=== PATIENT | male | born 1940 | race Hispanic/Latino ===

== ENCOUNTER 2020-06-30 09:40 | Observation (INO) | payer MEDICARE, OTHER ==
[~2020-06-30] VITALS: Ht 167.6 cm; Wt 84.4 kg
[~2020-06-30 09:40] MED LIST: ASACOL HD800 MG PO; ASPIR 8181 MG PO; DIOVAN320 MG PO; IBUPROFEN200 MG PO; JANUVIA50 MG PO; PANTOPRAZOLE SO40 MG PO; PREDNISOLONE ACE5 ML; SIMVASTATIN40 MG PO; TOPROL XL50 MG PO; XALATAN2.5 ML OU; ZOFRAN4 MG PO
[2020-06-30] MEDS ORDERED: LACTATED RINGER'S 500 ML IV ONE ×2 (10:00→12:45)
[2020-06-30] MEDS ORDERED: SODIUM CHLORIDE 0.9% 500ML 500 ML ONE (10:05)
[2020-06-30 10:12] LABS: BASOPHILS # (AUTO) 0.1 (0.0-0.1); BASOPHILS % 0.3 % (0.0-1.0); EOSINOPHILS % 0.1 % (0.0-6.0); HEMATOCRIT 38.3 % (38.2-49.6); HEMOGLOBIN 12.6 g/dL (14.0-18.0); LYMPHOCYTES # (AUTO) 0.5 (1.0-3.2); LYMPHOCYTES % 2.8 % (18.0-39.1); MEAN CORPUSCULAR HEMOGLOBIN 29.2 pg (28-32); MEAN CORPUSCULAR HGB CONC 32.9 g/dL (31-35); MEAN CORPUSCULAR VOLUME 88.7 fL (81-99); MONOCYTES # (AUTO) 0.9 (0.2-0.8); MONOCYTES % 5.1 % (4.4-11.3); NEUTROPHILS # (AUTO) 15.5 (2.1-6.9); NEUTROPHILS % 90.9 % (38.7-80.0); PLATELET COUNT 201 x10e3/uL (140-360); RED BLOOD COUNT 4.32 x10e6/uL (4.3-5.7); RED CELL DISTRIBUTION WIDTH 12.7 % (11.7-14.4)
[2020-06-30] MEDS: LACTATED RINGER'S 500 ML INJ ONE (10:15)
[2020-06-30] MEDS ORDERED: ATORVASTATIN CA20 MG PO (10:27)
[2020-06-30] MEDS ORDERED: [UNRECOGNIZED DRUG - OTHER] PO (10:27)
[2020-06-30] MEDS ORDERED: COMBIGAN EYE DRO5 ML (10:27)
[2020-06-30] MEDS ORDERED: LOSARTAN POTAS100 MG PO (10:27)
[2020-06-30] MEDS ORDERED: GLIMEPIRIDE2 MG PO (10:27)
[2020-06-30] MEDS ORDERED: FENOFIBRATE145 MG PO (10:27)
[2020-06-30] MEDS ORDERED: LATISSE3 ML (10:27)
[2020-06-30] MEDS ORDERED: FLOMAX0.4 MG PO (10:28)
[2020-06-30 10:30] LABS: ALBUMIN 3.3 g/dL (3.5-5.0); ALBUMIN/GLOBULIN RATIO 1.3 (0.8-2.0); CALCIUM 8.4 mg/dL (8.4-10.2); CREATININE, SERUM 1.97 mg/dL (0.72-1.25)
--- NOTE | 2020-06-30 10:43 | Emergency Department Note ---
History of Present Illnes History of Present Illness Chief Complaint: General Medicine Complaints History of Present Illness This is a 79 year old male Chief Complaint Comment PATIENT IN FROM HOME WITH COMPLAINTS OF DIZZINESS AND NEAR SYNCOPE TODAY; PER EMS, FAMILY STATES THAT HE HAS HAD LOW BLOOD PRESSURE OVER THE LAST TWO WEEKS. PATIENT ALERT AND ORIENTED, RESP EVEN AND NONLABORED, APPEARS IN NO DISTRESS, POOR HISTORIAN. PATIENT WITH 20G TO RIGHT HAND STARTED BY EMS, GIVEN 150 CC OF NORMAL SALINE PRIOR TO ARRIVAL. 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 History limited by: language barrier Access Services Assistant Required: Yes Onset (how long ago): day(s) (1) Location: Generalized Quality: light headedness Radiation: Reports non-radiation Severity: moderate Onset quality: unable to specify Duration (how long): day(s) (1) Timing of current episode: other (Only when standing) Progression: unchanged Chronicity: new Context: Denies recent illness, Denies recent surgery Relieving factors: none Exacerbating factors: none Associated symptoms: Reports denies other symptoms Treatments prior to arrival: none Past Medical/Family History Physician Review I have reviewed the patient's past medical and family history. Any updates have been documented here. Past Medical History Recent Fever: No Clinical Suspicion of Infectio: No New/Unexplained Change in Ment: No Past Medical History: Hypertension, Diabetes, [place], GERD, Hyperlipedemia Other Medical History: HIGH CHOLESTEROL Past Surgical History: CABG, Cataract Removal Other Surgery: RIGHT EYE SURGERY Social History Physically hurt or threatened: No Other Last Tetanus: UNKNOWN Review of Systems Review of Systems Constitutional: Reports as per HPI EENTM: Reports no symptoms Cardiovascular: Reports no symptoms Respiratory: Reports no symptoms Gastrointestinal: Reports no symptoms Genitourinary: Reports no symptoms Musculoskeletal: Reports no symptoms Integumentary: Reports no symptoms Neurological: Reports no symptoms Psychological: Reports no symptoms Endocrine: Reports no symptoms Hematological/Lymphatic: Reports no symptoms Physical Exam Related Data Allergies: Coded Allergies: No Known Drug Allergies (Verified Allergy, Unknown, 06/30/20) Triage Vital Signs Vital Signs Date Time Temp Pulse Resp B/P (MAP) Pulse Ox O2 Delivery O2 Flow Rate FiO2 06/30/20 09:45 98.8 104 20 82/51 100 Room Air Vital signs reviewed: Yes Physical Exam CONSTITUTIONAL Constitutional: Present well-developed, Present well-nourished HENT HENT: Present normocephalic, Present atraumatic, Present oropharynx silva r/moist, Present nose normal HENT L/R: Present left ext ear normal, Present right ext ear normal EYES Eyes: Reports PERRL, Reports conjunctivae normal NECK Neck: Present ROM normal PULMONARY Pulmonary: Present effort normal, Present breath sounds normal CARDIOVASCULAR Cardiovascular: Present irregular rhythm, Present heart sounds normal, Present capillary refill normal, Present tachycardia GASTROINTESTINAL Abdominal: Present soft, Present nontender, Present bowel sounds normal GENITOURINARY Genitourinary: Present exam deferred SKIN Skin: Present warm, Present dry MUSCULOSKELETAL Musculoskeletal: Present ROM normal NEUROLOGICAL Neurological: Present alert, Present oriented x 3, Present no gross motor or sensory deficits PSYCHOLOGICAL Psychological: Present mood/affect normal, Present judgement normal Results Laboratory Result Diagram: 06/30/2055 06/30/20 0955 Laboratory Laboratory Tests Test 06/30/20 10:07 06/30/20 09:55 Lactic Acid Level 3.2 mmol/L (0.5-2.0) White Blood Count 17.01 x10e3/uL (4.8-10.8) Red Blood Count 4.32 x10e6/uL (4.3-5.7) Hemoglobin 12.6 g/dL (14.0-18.0) Hematocrit 38.3 % (38.2-49.6) Mean Corpuscular Volume 88.7 fL (81-99) Mean Corpuscular Hemoglobin 29.2 pg (28-32) Mean Corpuscular Hemoglobin Concent 32.9 g/dL (31-35) Red Cell Distribution Width 12.7 % (11.7-14.4) Platelet Count 201 x10e3/uL (140-360) Neutrophils (%) (Auto) 90.9 % (38.7-80.0) Lymphocytes (%) (Auto) 2.8 % (18.0-39.1) Monocytes (%) (Auto) 5.1 % (4.4-11.3) Eosinophils (%) (Auto) 0.1 % (0.0-6.0) Basophils (%) (Auto) 0.3 % (0.0-1.0) Neutrophils # (Auto) 15.5 (2.1-6.9) Lymphocytes # (Auto) 0.5 (1.0-3.2) Monocytes # (Auto) 0.9 (0.2-0.8) Eosinophils # (Auto) 0.0 (0.0-0.4) Basophils # (Auto) 0.1 (0.0-0.1) Absolute Immature Granulocyte (auto 0.14 x10e3/uL (0-0.1) Sodium Level 138 mmol/L (136-145) Potassium Level 4.0 mmol/L (3.5-5.1) Chloride Level 107 mmol/L (98-107) Carbon Dioxide Level 21 mmol/L (22-29) Anion Gap 14.0 mmol/L (8-16) Blood Urea Nitrogen 23 mg/dL (7-26) Creatinine 1.97 mg/dL (0.72-1.25) Estimat Glomerular Filtration Rate 33 ML/MIN (60-) BUN/Creatinine Ratio 12 (6-25) Glucose Level 271 mg/dL (74-118) Calcium Level 8.4 mg/dL (8.4-10.2) Total Bilirubin 0.5 mg/dL (0.2-1.2) Aspartate Amino Transf (AST/SGOT) 17 IU/L (5-34) Alanine Aminotransferase (ALT/SGPT) 14 IU/L (0-55) Alkaline Phosphatase 54 IU/L (40-150) Troponin I 0.017 ng/mL (0-0.300) Total Protein 5.9 g/dL (6.5-8.1) Albumin 3.3 g/dL (3.5-5.0) Globulin 2.6 g/dL (2.3-3.5) Albumin/Globulin Ratio 1.3 (0.8-2.0) Lab results reviewed: Yes Imaging Imaging results reviewed: Yes Diagnostics Tests Diagnostic test(s) reviewed: Yes Procedures 12 Lead ECG Interpretation ECG Interpretation : Access Services Assistant: Interpreted by ED physician Date: Jun 30, 2020 Prior ECG tracings: reviewed Rhythm: atrial fibrillation Rate: tachycardia QRS axis: normal Conduction: right bundle branch block ST segments normal: Yes T waves normal: Yes Clinical Impression: abnormal ECG Assessment & Plan Medical Decision Making MDM 79-year-old male with a past medical history significant for hypertension presents to the emergency department for lightheadedness when standing. He denies any pain or any focal symptoms. Initial examination shows hypotension 80/50. Patient's asymmetric while lying down. He is given 500 mL of lactated Ringer's with improvement in blood pressure. Bedside echocardiogram shows decreased cardiac contractility on to fluid overload. We'll be judicious with fluids and started on 126 mL per hour LR. Lactic acid 3 is started on Zosyn. No source of infection. Another 500cc LR given. Discussed with Dr. Jha who agrees to admit to IMCU Reassessment Reassessment time: 10:43 Reassessment Focused exam benign/ BP improved w/ fluids Assessment & Plan Final Impression: (1) Hypotension Depart Disposition: ADMITTED Last Vital Signs Date Time Temp Pulse Resp B/P (MAP) Pulse Ox O2 Delivery O2 Flow Rate FiO2 06/30/20 10:18 91 19 92/60 99 Room Air 06/30/20 09:45 98.8 Home Meds Reported Medications Tamsulosin Hcl* (FLOMAX*) 0.4 Mg Cap, 0.4 MG PO HS, #30 CAP 06/30/20 Losartan Potassium (LOSARTAN POTASSIUM) 100 Mg Tablet, 100 MG PO DAILY, TAB 06/30/20 [iron complex OR] No Conflict Check, 1 TAB PO DAILY 06/30/20 Glimepiride (GLIMEPIRIDE) 2 Mg Tablet, 1 MG PO DAILY, TAB 06/30/20 Fenofibrate Nanocrystallized (FENOFIBRATE) 145 Mg Tablet, 48 MG PO DAILY 06/30/20 Brimonidine Tartrate (COMBIGAN EYE DROPS) 5 Ml Drpette 06/30/20 Bimatoprost (LATISSE) 3 Ml Drop.w.oscar 06/30/20 Atorvastatin Calcium (ATORVASTATIN CALCIUM) 20 Mg Tablet, 80 MG PO HS, #30 TAB 06/30/20 Sitagliptin Phosphate (JANUVIA) 50 Mg Tablet, 50 MG PO RDAILY 03/30/13 Prednisolone Acetate (PREDNISOLONE ACETATE) 5 Ml Drops.susp, 1 DROP 03/30/13 Latanoprost (XALATAN) 2.5 Ml Drops, 1 DROP OU RDAILY 03/30/13 Discontinued Reported Medications Valsartan (DIOVAN) 320 Mg Tablet, 320 MG PO RDAILY 03/30/13 Simvastatin (SIMVASTATIN) 40 Mg Tablet, 40 MG PO RDAILY 03/30/13 Pantoprazole Sodium* (PROTONIX) 40 Mg Tablet.dr, 40 MG PO RDAILY 03/30/13 Ondansetron Hcl* (ZOFRAN*) 4 Mg Tablet, 4 MG PO RTID 03/30/13 Metoprolol Succinate (TOPROL XL) 50 Mg Tab.er.24h, 50 MG PO RDAILY 03/30/13 Mesalamine (ASACOL HD) 800 Mg Tablet.dr, 800 MG PO TID 03/30/13 Ibuprofen (IBUPROFEN) 200 Mg Capsule, 200 MG PE PO RQ6H 03/30/13 Aspirin (ASPIR 81) 81 Mg Tablet.dr, 81 MG PO RDAILY 03/30/13 Medications in the ED Lactated Ringer's 500 ml @ 0 mls/hr Q0M ONCE IV ; Start 06/30/20 at 10:00; Stop 06/30/20 at 10:02; Status DC Sodium Chloride 500 ml @ ud STK-MED ONCE .ROUTE ; Start 06/30/20 at 10:05; Stop 06/30/20 at 09:58; Status DC Lactated Ringer's 500 ml @ 0 mls/hr Q0M ONCE INJ ; Start 06/30/20 at 10:15; Stop 06/30/20 at 10:16; Status DC Piperacillin Sod/ Tazobactam Sod 100 ml @ 100 mls/hr NOW STAT IV ; Start 06/30/20 at 10:36; Stop 06/30/20 at 11:35 Lactated Ringer's 1,000 ml @ 126 mls/hr Q7H57M ONCE INJ ; Start 06/30/20 at 10:45; Stop 06/30/20 at 18:41 ALEXEY RUST MD Jun 30, 2020 10:43
[2020-06-30 11:02] LABS: BAND NEUTROPHILS % (MANUAL) 1 %; LYMPHOCYTES % (MANUAL) 2 % (19-48); MONOCYTES % (MANUAL) 3 % (3.4-9.0); NEUTROPHILS % (MANUAL) 93 % (40-74); PLATELET ESTIMATE ADEQUATE; PLATELET MORPHOLOGY COMMENT NORMAL; RBC MORPHOLOGY COMMENT NORMAL
--- NOTE | 2020-06-30 11:11 | Diagnostic Imaging Report ---
EXAMINATION: CHEST SINGLE (PORTABLE) INDICATION: Chest pain COMPARISON: None FINDINGS: LINES/TUBES:EKG leads overlie the chest. LUNGS:The lungs are well-inflated. No focal consolidation or pulmonary edema. PLEURA:No pleural effusion or pneumothorax. MEDIASTINUM:The cardiomediastinal silhouette appears normal in size and shape. BONES/SOFT TISSUES:No acute osseous injury. Sternotomy wires in place. ABDOMEN:No free air under the diaphragm. IMPRESSION: No focal pneumonia or pulmonary edema. Signed by: Ronny Graves MD on 06/30/2020 11:07 AM
[2020-06-30] MEDS: PIPERACILLIN/TAZO 4.5 GM 100 ML IV STA ×2 (11:23→11:31)
[2020-06-30] MEDS: LACTATED RINGER'S 1,000 ML INJ ONE ×2 (11:23→11:30)
[2020-06-30] MEDS ORDERED: LACTATED RINGER'S 1,000 ML ONE (12:44)
[2020-06-30] MEDS ORDERED: LACTATED RINGER'S 500 ML INJ ONE (12:45)
--- OUTSIDE RECORDS SUMMARY | 2020-06-30 12:46 | XMS REPORT | Continuity of Care Document ---
Author Author [facility] Organization 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 Allergies, Adverse Reactions, Alerts This patient has no known allergies or adverse reactions. Medications This patient has no known medications. Procedures This patient has no known procedures. Results Test Description Test Time Test Comments Results Result Comments Source CHEST SINGLE (PORTABLE) 2020-06-30 11:07:00 [facility] 1940 Sex: M [facility] [address] [address] Patient Name: JOHN SOLOMON MR #: [id number] : 1940 Age/Sex: 79/M Req #: [id number] [facility] Physician: Ordered by: Collin Polanco MD Report #: [id number] Location: ER Room/Bed: Procedure: [id number] DX/CHEST SINGLE (PORTABLE) Exam Date: Exam Time: REPORT STATUS: Signed EXAMINATION: CHEST SINGLE (PORTABLE) INDICATION: Chest pain COMPARISON: None FINDINGS: LINES/TUBES:EKG leads overlie the chest. LUNGS:The lungs are well-inflated. No focal consolidation or pulmonary edema. PLEURA:No pleural effusion or pneumothorax. MEDIASTINUM:The cardiomediastinal silhouette appears normal in size and shape. BONES/SOFT TISSUES:No acute osseous injury. Sternotomy wires in place. ABDOMEN:No free air under the diaphragm. IMPRESSION: No focal pneumonia or pulmonary edema. Signed by: Herve Montgomery MD on 06/30/2020 11:07 AM Dictated By: HERVE MONTGOMERY MD 06 Transcribed By: MATTEO on 06/30/201106 COPY TO: COLLIN POLANCO MD
[2020-06-30 12:59] LABS: CLARITY,URINE SL CLOUDY (CLEAR); COLOR,URINE YELLOW (YELLOW); LEUKOCYTE ESTERASE ,URINE SMALL (NEGATIVE)
[2020-06-30 13:00] LABS: KETONES,URINE TRACE (NEGATIVE); NITRITE,URINE NEGATIVE (NEGATIVE); PROTEIN,URINE DIPSTICK 1+ (NEGATIVE); URINE UROBILINOGEN 0.2 mg/dL (0.2 - 1)
[2020-06-30 13:01] LABS: BILIRUBIN,URINE SMALL (NEGATIVE)
[2020-06-30 13:07] LABS: BACTERIA,URINE FEW /HPF
[2020-06-30] MEDS ORDERED: ONDANSETRON HCL INJ 2MG/ML 2ML 2 MG/ML VIAL IV PRN (13:15)
[2020-06-30] MEDS ORDERED: ALBUTEROL/IPRATROPIUM 3 ML NEB NEB PRN (13:15)
[2020-06-30] MEDS ORDERED: ACETAMINOPHEN 325 MG TAB PO PRN (13:15)
[2020-06-30] MEDS ORDERED: POTASSIUM CHLORIDE 20 MEQ TAB CR PO PRN (13:15)
[2020-06-30] MEDS ORDERED: DEXTROSE 50% SYRINGE 50 ML IV PRN ×2 (13:15)
[2020-06-30] MEDS ORDERED: MELATONIN 5 MG TABLET PO PRN (13:15)
[2020-06-30] MEDS ORDERED: POLYETHYLENE GLYCOL 3350 17 GM PACK PO PRN (13:15)
[2020-06-30] MEDS ORDERED: TRAMADOL HCL 50 MG TAB PO PRN (13:15)
[2020-06-30] MEDS ORDERED: HYDRALAZINE HCL 20 MG/ML VIAL IV PRN (13:15)
[2020-06-30] MEDS ORDERED: DOCUSATE SODIUM 100 MG CAP PO PRN (13:15)
[2020-06-30] MEDS ORDERED: MIDODRINE HCL 5 MG TABLET PO SCH (13:15)
[2020-06-30] MEDS ORDERED: GUAIFENESIN/CODEINE 10 ML CUP PO PRN (13:15)
[2020-06-30] MEDS ORDERED: CHLORASEPTIC SPRAY 177 ML BTL MM PRN (13:15)
[2020-06-30] MEDS ORDERED: VANCOMYCIN 1GM/NS 250 ML 250 ML IV SCH (13:15)
[2020-06-30] MEDS ORDERED: SIMETHICONE 80 MG CHEW PO PRN (13:15)
[2020-06-30] MEDS ORDERED: VANCOMYCIN 1GM/NS 250 ML 250 ML IV ONE (13:45)
[2020-06-30] MEDS: CEFEPIME 1GM/NS 0.9% 50 ML 50 ML IV SCH ×2 (14:12→21:57)
[2020-06-30 14:39] LABS: ANION GAP 14.3 mmol/L (8-16); CALCIUM 8.3 mg/dL (8.4-10.2); CREATININE, SERUM 1.76 mg/dL (0.72-1.25); POTASSIUM 4.3 mmol/L (3.5-5.1)
--- NOTE | 2020-06-30 15:06 | NUR ---
reported STAT BMP results to Dr. Jha. Per MD, patient can be admitted to med/surg tele.
--- NOTE | 2020-06-30 15:19 | NUR ---
telephone order by Dr. Jha to hold midmargaretterine
[2020-06-30 16:18] VITALS: BP 99/60
[2020-06-30 16:26] VITALS: BP 99/60
[2020-06-30] MEDS: INSULIN LISPRO 100 UNIT/1 ML 3ML VIAL SQ SCH ×2 (16:30→20:34)
--- NOTE | 2020-06-30 16:40 | NUR ---
Discontinuing PT services since patient is Mod I in functional mobility. Thank you Addendum: 06/30/20 at 1640 by Felipe walker PT Amended: Links added.
--- NOTE | 2020-06-30 19:00 | NUR ---
Received the patient in report.sitting in the bed.aaox3.family member @bed side.call light within reach.instructed to call for assistance as needed.
[2020-06-30 19:42] VITALS: BP 105/63
[2020-06-30 21:00] VITALS: BP 105/63
[2020-07-01] VITALS: BP 95/57
--- NOTE | 2020-07-01 02:35 | History and Physical ---
CHIEF COMPLAINT: Hypotension and dizziness. HISTORY OF PRESENT ILLNESS: This is an 79-year-old male with past medical history of hypertension, hyperlipidemia, type 2 diabetes, presents to the ED with complaints with underlying dizziness, found to be hypotensive at home. According to the daughter, who is at bedside, she reports over the last several weeks, his blood pressure has been in the 70s and 80s and she notices that he is very symptomatic. She denies any recent change in his antihypertensive medications. Denies any cough, congestion, fever, diarrhea, decreased oral intake, dehydration, or any fever. The patient was stable during my evaluation. Daughter reports that today she checked his blood pressure is in the 80s. The patient's daughter reported he is very dizzy. While here, the patient was given normal saline boluses on several occasions. Blood pressure improved. The patient did take his medications this morning at home. REVIEW OF SYSTEMS: Pertinent positives: Lightheadedness and dizziness. The rest of 14-point review of systems have been reviewed with the patient and are negative. ALLERGIES: NO KNOWN DRUG ALLERGIES. HOME MEDICATIONS: Lipitor, , fenofibrate, , losartan 100 mg daily, prednisolone, tamsulosin, Januvia, and vitamins. PAST MEDICAL HISTORY: Hypertension, diabetes, hyperlipidemia, and morbidly obese. PAST SURGICAL HISTORY: None. FAMILY HISTORY: Hypertension and diabetes. SOCIAL HISTORY: No drugs. No alcohol. Does not smoke. Good social support. PHYSICAL EXAMINATION: VITAL SIGNS: Temperature is 98, pulse is 75, respiratory rate 20, blood pressure 105/63, pulse ox 98% on room air. GENERAL: Not in acute distress. Alert and oriented x3. Cooperative on exam. PULMONARY: Clear to auscultation bilaterally. No wheezing, rales, or rhonchi. No crackles appreciated. CARDIOVASCULAR: Positive S1, S2. ABDOMEN: Soft, nondistended, nontender to palpation. Bowel sounds present. MUSCULOSKELETAL: Strength is 5/5 throughout. NEUROLOGICAL: Cranial nerves II through XII grossly intact. LABORATORY DATA: Show white count 17, hemoglobin 12, hematocrit 38, and platelets of 201. Chemistry; sodium 140, potassium 4.3, chloride 108, bicarbonate 22, anion gap of 14, BUN is 23 and creatinine is 1.76, glucose is 130. Urinalysis noted. Coronavirus is pending. Blood cultures are pending. IMAGING STUDIES: Chest x-ray negative. IMPRESSION: 1. Hypotension, likely multifactorial from blood pressure medications as well as dehydration. 2. Type 2 diabetes. 3. Hypertension. PLAN: At this time, it does not seem to be sepsis-related, seems to be more hypotension due to blood pressure medications and dehydration. Leukocytosis is likely stressed induced. On any rate, we will continue with broad-spectrum IV antibiotics, saldana cultures. Monitor very closely. Restart home medications. Lovenox for DVT prophylaxis. Plan of care discussed with the patient, the patient's daughter and they verbalized understanding. MD PRISCILA Dang/ABDELRAHMAN /[id number]
[2020-07-01 04:15] VITALS: BP 117/56
[2020-07-01] MEDS: CEFEPIME 1GM/NS 0.9% 50 ML 50 ML IV SCH (05:14)
[2020-07-01 06:14] LABS: BASOPHILS % 0.5 % (0.0-1.0); EOSINOPHILS # (AUTO) 0.2 (0.0-0.4); EOSINOPHILS % 2.7 % (0.0-6.0); HEMATOCRIT 38.4 % (38.2-49.6); HEMOGLOBIN 12.3 g/dL (14.0-18.0); LYMPHOCYTES # (AUTO) 0.7 (1.0-3.2); LYMPHOCYTES % 9.5 % (18.0-39.1); MEAN CORPUSCULAR VOLUME 90.6 fL (81-99); MONOCYTES # (AUTO) 0.8 (0.2-0.8); MONOCYTES % 10.7 % (4.4-11.3); NEUTROPHILS # (AUTO) 5.6 (2.1-6.9); NEUTROPHILS % 76.2 % (38.7-80.0); PLATELET COUNT 171 x10e3/uL (140-360); RED BLOOD COUNT 4.24 x10e6/uL (4.3-5.7); RED CELL DISTRIBUTION WIDTH 13.1 % (11.7-14.4)
[2020-07-01 06:35] LABS: ALBUMIN 2.9 g/dL (3.5-5.0); ANION GAP 12.6 mmol/L (8-16); CALCIUM 8.4 mg/dL (8.4-10.2); CREATININE, SERUM 1.57 mg/dL (0.72-1.25); POTASSIUM 4.6 mmol/L (3.5-5.1)
--- NOTE | 2020-07-01 07:02 | NUR ---
Bed side shift report given .stable condition.
[2020-07-01] MEDS: INSULIN LISPRO 100 UNIT/1 ML 3ML VIAL SQ SCH (07:30)
[2020-07-01] MEDS ORDERED: PANTOPRAZOLE SOD 40 MG TABEC PO SCH (07:30)
[2020-07-01 08:02] VITALS: BP 121/52
[2020-07-01 09:54] VITALS: BP 121/52
[2020-07-01 11:36] VITALS: BP 130/69
--- NOTE | 2020-07-01 11:52 | NUR ---
patient and daughter requesting to leave AMA after speaking with Dr. Jha. he does not wish to wait for final cultures and signed AMA paperwork. tele removed. IV x2 removed. patient wheeled off unit to daughters personal vehicle with all belongings.
--- NOTE | 2020-07-02 01:03 | Discharge Summary ---
FINAL DISCHARGE DIAGNOSES: 1. Left against medical advice. 2. Hypotension, presumed to be from polypharmacy. 3. Leukocytosis, rule out infection. 4. Type 2 diabetes. 5. Hypertension. 6. Acute kidney injury likely secondary to dehydration. CONSULTANTS: None. PHYSICAL EXAMINATION: VITAL SIGNS: Temperature is 97.6, pulse 65, respiratory rate 17, blood pressure 130/69, pulse ox 99% on room air. LABORATORY FINDINGS: White count shows 7.3, on admission was 17, hemoglobin 12, hematocrit 38, platelets of 171. Chemistry; sodium 143, potassium 4.6, chloride 110, bicarb 25, anion gap of 12, BUN 23 and creatinine 1.57, which was downtrending. Glucose is 140. LFTs within normal range. Troponin 0.037, which was within normal range. Albumin was 2.9. Urinalysis noted. Serologies; coronavirus is still pending. Blood cultures were no growth to date x2 greater than 24 hours. IMAGING STUDIES: Chest x-ray, no focal pneumonia or pulmonary edema. HOSPITAL COURSE: An 79-year-old male, comes in with underlying hypotension, likely secondary to dehydration leading to acute kidney injury. The patient was found to have also leukocytosis, in which saldana cultures were collected and started on IV antibiotic therapy. The patient required several normal saline boluses in the emergency room with rate responsiveness, in which he improved tremendously. The patient was on observation and was admitted overnight. On the following day on 07/01/2020, the patient and his daughter was at bedside and they would like to leave against medical advice. They feel like the patient is doing well with no complaints. His blood pressure was stable, but I was awaiting for cultures and he also was having leukocytosis. I suggested to them and recommended for them not to leave against medical advice. Nurse was present throughout the entire conversation, Idalia, at bedside, but despite that the patient and the daughter wanted to leave against medical advice. I discussed with them this is not recommended, but instead the left AMA. They signed appropriate documentation, which was left in the chart. The patient was left against medical advice. MEDICATIONS: See med reconciliation form. DISPOSITION: Left against medical advice. In the event of any worsening symptoms, the patient was advised to come back to the ED for further evaluation. Discharge summary took greater than 35 minutes. The patient left against medical advice. MD PRISCILA Dang/ABDELRAHMAN /[id number]
== END 2020-07-01 11:40 | disposition left against medical advice (07) ==
LOC: ER 10:03 → INTOOBSV 12:42 → ERHOLD 12:42 → MED/SURG3 16:01
PROVIDERS: ADMIT Internal Medicine; ATTEND Internal Medicine
DX: N17.9 Acute kidney failure, unspecified (principal); I95.2 Hypotension due to drugs; T46.5X5A Adverse effect of other antihypertensive drugs, initial encounter; I10 Essential (primary) hypertension; E11.9 Type 2 diabetes mellitus without complications; E78.5 Hyperlipidemia, unspecified; I25.2 Old myocardial infarction; Z95.1 Presence of aortocoronary bypass graft; E86.0 Dehydration; D72.829 Elevated white blood cell count, unspecified; Z79.84 Long term (current) use of oral hypoglycemic drugs; Z20.828 Contact with and (suspected) exposure to other viral communicable diseases
CPT/HCPCS: 36415 ×2; 71045; 80048; 80053 ×2; 81001; 82948 ×2; 83605; 83880; 84484; 85025 ×2; 87040; 93005; 97139; 97161; 99284; G0378 ×2; J0692 ×2; J2543; J3370; J7040; J7121; S0164; U0002

== ENCOUNTER 2020-12-20 08:18 | Inpatient (IN) | payer MEDICARE ==
[~2020-12-20] VITALS: Ht 167.6 cm; Wt 84.4 kg
[~2020-12-20 08:18] MED LIST changes: +ATORVASTATIN CA20 MG PO; +COMBIGAN EYE DRO5 ML; +FENOFIBRATE145 MG PO; +FLOMAX0.4 MG PO; +GLIMEPIRIDE2 MG PO; +LATISSE3 ML; +LOSARTAN POTAS100 MG PO; +[UNRECOGNIZED DRUG - OTHER] PO
[2020-12-20] MEDS ORDERED: CEFTRIAXONE SOD 1 GM VIAL IM ONE (09:00)
[2020-12-20] MEDS ORDERED: ACETAMINOPHEN 325 MG TAB PO ONE (09:00)
[2020-12-20] MEDS ORDERED: SODIUM CHLORIDE 0.9% 1000ML 1,000 ML IV ONE ×2 (09:00→10:00)
[2020-12-20 09:14] LABS: BASOPHILS # (AUTO) 0.1 (0.0-0.1); BASOPHILS % 0.4 % (0.0-1.0); EOSINOPHILS # (AUTO) 0.1 (0.0-0.4); EOSINOPHILS % 0.5 % (0.0-6.0); HEMATOCRIT 42.9 % (38.2-49.6); HEMOGLOBIN 14.1 g/dL (14.0-18.0); LYMPHOCYTES # (AUTO) 0.5 (1.0-3.2); LYMPHOCYTES % 4.7 % (18.0-39.1); MEAN CORPUSCULAR HEMOGLOBIN 28.7 pg (28-32); MEAN CORPUSCULAR HGB CONC 32.9 g/dL (31-35); MEAN CORPUSCULAR VOLUME 87.4 fL (81-99); MONOCYTES # (AUTO) 0.2 (0.2-0.8); MONOCYTES % 1.6 % (4.4-11.3); NEUTROPHILS # (AUTO) 10.6 (2.1-6.9); NEUTROPHILS % 92.1 % (38.7-80.0); PLATELET COUNT 163 x10e3/uL (140-360); RED BLOOD COUNT 4.91 x10e6/uL (4.3-5.7); RED CELL DISTRIBUTION WIDTH 12.9 % (11.7-14.4)
[2020-12-20 09:36] LABS: ALBUMIN 3.7 g/dL (3.5-5.0); ALBUMIN/GLOBULIN RATIO 1.1 (0.8-2.0); ANION GAP 16.4 mmol/L (8-16); CALCIUM 9.2 mg/dL (8.4-10.2); CREATININE, SERUM 1.32 mg/dL (0.72-1.25); POTASSIUM 4.4 mmol/L (3.5-5.1)
[2020-12-20 09:42] LABS: INR 1.09; PROTHROMBIN TIME 14.7 seconds (11.9-14.5)
[2020-12-20 09:50] LABS: CLARITY,URINE SL CLOUDY (CLEAR); COLOR,URINE YELLOW (YELLOW); KETONES,URINE NEGATIVE (NEGATIVE); LEUKOCYTE ESTERASE ,URINE SMALL (NEGATIVE); NITRITE,URINE NEGATIVE (NEGATIVE); PROTEIN,URINE DIPSTICK 2+ (NEGATIVE); URINE UROBILINOGEN 0.2 mg/dL (0.2 - 1)
[2020-12-20 10:17] LABS: EPITHELIAL CELLS,URINE RARE /LPF; RBC,URINE >50 /HPF (0-5)
[2020-12-20 10:18] LABS: BACTERIA,URINE FEW /HPF; TRANSITIONAL EPI CELLS,URINE FEW
[2020-12-20 11:24] LABS: BAND NEUTROPHILS % (MANUAL) 1 %; EOSINOPHILS % (MANUAL) 2 % (0-7); LYMPHOCYTES % (MANUAL) 5 % (19-48); MONOCYTES % (MANUAL) 1 % (3.4-9.0); NEUTROPHILS % (MANUAL) 91 % (40-74); PLATELET ESTIMATE ADEQUATE; PLATELET MORPHOLOGY COMMENT NORMAL; RBC MORPHOLOGY COMMENT NORMAL
[2020-12-20] MEDS: SODIUM CHLORIDE 0.9% 1000ML 1,000 ML IV SCH (15:15)
[2020-12-20] MEDS ORDERED: VANCOMYCIN 1GM/NS 250 ML 250 ML IV ONE (15:15)
[2020-12-20] MEDS ORDERED: ONDANSETRON HCL INJ 2MG/ML 2ML 2 MG/ML VIAL IV PRN (15:15)
[2020-12-20 16:44] VITALS: BP 139/71
[2020-12-20] MEDS ORDERED: LISINOPRIL10 MG PO (18:18)
[2020-12-20] MEDS ORDERED: CALCIUM CARBON500 MG PO (18:18)
[2020-12-20] MEDS ORDERED: FEROSUL325 MG PO (18:18)
[2020-12-20] MEDS ORDERED: AMLODIPINE BESYL5 MG PO (18:18)
[2020-12-20 20:06] VITALS: BP 132/68
[2020-12-20 20:13] VITALS: BP 132/68
[2020-12-20] MEDS: CEFTRIAXONE SOD 1 GM in SODIUM CHLORIDE 0.9% 50ML 50 ML IV SCH (20:55)
[2020-12-20] MEDS ORDERED: CEFTRIAXONE SOD 1 GM VIAL IV SCH (21:00)
[2020-12-20 23:55] VITALS: BP 122/62
[2020-12-21] VITALS (8 sets, daily range): BP systolic 129–159; BP diastolic 64–81
[2020-12-21 00:42] LABS: CREATINE KINASE MB 1.3 ng/mL (0-5.0)
[2020-12-21] MEDS: SODIUM CHLORIDE 0.9% 1000ML 1,000 ML IV SCH ×3 (01:24→21:02)
[2020-12-21 04:49] LABS: BASOPHILS # (AUTO) 0.1 (0.0-0.1); BASOPHILS % 0.4 % (0.0-1.0); EOSINOPHILS % 0.2 % (0.0-6.0); HEMATOCRIT 35.3 % (38.2-49.6); HEMOGLOBIN 11.6 g/dL (14.0-18.0); LYMPHOCYTES # (AUTO) 0.9 (1.0-3.2); LYMPHOCYTES % 5.5 % (18.0-39.1); MEAN CORPUSCULAR HEMOGLOBIN 28.9 pg (28-32); MEAN CORPUSCULAR HGB CONC 32.9 g/dL (31-35); MONOCYTES # (AUTO) 1.1 (0.2-0.8); NEUTROPHILS # (AUTO) 13.4 (2.1-6.9); NEUTROPHILS % 86.1 % (38.7-80.0); PLATELET COUNT 140 x10e3/uL (140-360); RED BLOOD COUNT 4.01 x10e6/uL (4.3-5.7); RED CELL DISTRIBUTION WIDTH 13.1 % (11.7-14.4)
[2020-12-21 05:16] LABS: ALANINE AMINOTRANSFERASE 11 IU/L (0-55); ALBUMIN 2.7 g/dL (3.5-5.0); ALBUMIN/GLOBULIN RATIO 0.9 (0.8-2.0); ALKALINE PHOSPHATASE 43 IU/L (40-150); ANION GAP 10.5 mmol/L (8-16); BLOOD UREA NITROGEN 17 mg/dL (7-26); BUN/CREATININE RATIO 15 (6-25); CALCIUM 7.9 mg/dL (8.4-10.2); CARBON DIOXIDE 22 mmol/L (22-29); CHLORIDE 112 mmol/L (98-107); EST GLOMERULAR FILTRATION RATE > 60 ML/MIN (60-); GLUCOSE 128 mg/dL (74-118); POTASSIUM 3.5 mmol/L (3.5-5.1); SODIUM 141 mmol/L (136-145)
[2020-12-21 05:38] LABS: CREATINE KINASE MB 0.7 ng/mL (0-5.0)
[2020-12-21 06:31] LABS: BAND NEUTROPHILS % (MANUAL) 4 %; EOSINOPHILS % (MANUAL) 1 % (0-7); LYMPHOCYTES % (MANUAL) 2 % (19-48); MONOCYTES % (MANUAL) 5 % (3.4-9.0); NEUTROPHILS % (MANUAL) 88 % (40-74); PLATELET ESTIMATE ADEQUATE; PLATELET MORPHOLOGY COMMENT FEW LARGE; RBC MORPHOLOGY COMMENT NORMAL
[2020-12-21] MEDS: CEFTRIAXONE SOD 1 GM in SODIUM CHLORIDE 0.9% 50ML 50 ML IV SCH ×2 (08:11→21:00)
[2020-12-21] MEDS ORDERED: DEXTROSE 50% SYRINGE 50 ML IV PRN (09:30)
[2020-12-21] MEDS: INSULIN LISPRO 100 UNIT/1 ML 3ML VIAL SQ SCH ×3 (11:22→21:06)
[2020-12-21] MEDS: LATANOPROST(OPTH) 2.5 ML BTL OU SCH (20:57)
[2020-12-21] MEDS: TAMSULOSIN HCL 0.4 MG CAP PO SCH (20:59)
[2020-12-21] MEDS: ATORVASTATIN 40 MG TAB PO SCH (20:59)
[2020-12-22] VITALS (10 sets, daily range): BP systolic 137–167; BP diastolic 66–83
[2020-12-22] MEDS: ACETAMINOPHEN 325 MG TAB PO PRN ×2 (00:54→18:34)
[2020-12-22 04:53] LABS: BASOPHILS % 0.3 % (0.0-1.0); EOSINOPHILS # (AUTO) 0.2 (0.0-0.4); EOSINOPHILS % 2.1 % (0.0-6.0); HEMATOCRIT 35.9 % (38.2-49.6); HEMOGLOBIN 11.7 g/dL (14.0-18.0); LYMPHOCYTES % 8.3 % (18.0-39.1); MEAN CORPUSCULAR HEMOGLOBIN 28.6 pg (28-32); MEAN CORPUSCULAR HGB CONC 32.6 g/dL (31-35); MEAN CORPUSCULAR VOLUME 87.8 fL (81-99); MONOCYTES % 8.8 % (4.4-11.3); NEUTROPHILS # (AUTO) 9.2 (2.1-6.9); PLATELET COUNT 134 x10e3/uL (140-360); RED BLOOD COUNT 4.09 x10e6/uL (4.3-5.7); RED CELL DISTRIBUTION WIDTH 13.1 % (11.7-14.4)
[2020-12-22 05:13] LABS: ANION GAP 12.5 mmol/L (8-16); BLOOD UREA NITROGEN 17 mg/dL (7-26); BUN/CREATININE RATIO 16 (6-25); CALCIUM 7.7 mg/dL (8.4-10.2); CARBON DIOXIDE 20 mmol/L (22-29); CHLORIDE 113 mmol/L (98-107); CREATININE, SERUM 1.04 mg/dL (0.72-1.25); EST GLOMERULAR FILTRATION RATE > 60 ML/MIN (60-); GLUCOSE 125 mg/dL (74-118); POTASSIUM 3.5 mmol/L (3.5-5.1); SODIUM 142 mmol/L (136-145)
[2020-12-22] MEDS ORDERED: NON-FORMULARY MEDICATION (Sitagliptin Phosphate* (Januvia*) 50 MG) PO SCH (06:00)
[2020-12-22] MEDS: INSULIN LISPRO 100 UNIT/1 ML 3ML VIAL SQ SCH ×4 (07:15→21:00)
[2020-12-22] MEDS ORDERED: PREDNISOLONE ACETATE 1% OPTH SUSP 5 ML BTL OP SCH (09:00)
[2020-12-22] MEDS: SODIUM CHLORIDE 0.9% 1000ML 1,000 ML IV SCH ×3 (09:13→22:00)
[2020-12-22] MEDS: BRIMONIDINE/TIMOLOL (OPTH SOLN 5 ML DRPETTE OP SCH (09:16)
[2020-12-22] MEDS: CEFTRIAXONE SOD 1 GM in SODIUM CHLORIDE 0.9% 50ML 50 ML IV SCH ×2 (09:16→21:00)
[2020-12-22] MEDS: FENOFIBRATE 48 MG TAB PO SCH (09:17)
[2020-12-22] MEDS: SITAGLIPTIN 100 MG TAB PO SCH (09:17)
[2020-12-22] MEDS: LOSARTAN POTASSIUM 100 MG TAB PO SCH (09:17)
[2020-12-22] MEDS: FERROUS SULFATE 325 MG TAB PO SCH (09:17)
[2020-12-22] MEDS: AMLODIPINE BESYLATE 5 MG TAB PO SCH (09:17)
[2020-12-22] MEDS: OYST-CAL-D 500MG TABLET PO SCH (09:42)
[2020-12-22] MEDS: TAMSULOSIN HCL 0.4 MG CAP PO SCH (21:00)
[2020-12-22] MEDS: ATORVASTATIN 40 MG TAB PO SCH (21:00)
[2020-12-22] MEDS: LATANOPROST(OPTH) 2.5 ML BTL OU SCH (21:00)
[2020-12-23] VITALS (7 sets, daily range): BP systolic 121–159; BP diastolic 53–98
[2020-12-23] MEDS: TRAMADOL HCL 50 MG TAB PO PRN ×3 (04:02→19:55)
[2020-12-23 04:44] LABS: BASOPHILS % 0.6 % (0.0-1.0); EOSINOPHILS # (AUTO) 0.2 (0.0-0.4); EOSINOPHILS % 3.3 % (0.0-6.0); HEMATOCRIT 36.3 % (38.2-49.6); LYMPHOCYTES # (AUTO) 0.6 (1.0-3.2); LYMPHOCYTES % 9.8 % (18.0-39.1); MEAN CORPUSCULAR HEMOGLOBIN 28.7 pg (28-32); MEAN CORPUSCULAR HGB CONC 33.1 g/dL (31-35); MEAN CORPUSCULAR VOLUME 86.8 fL (81-99); MONOCYTES # (AUTO) 0.6 (0.2-0.8); MONOCYTES % 9.9 % (4.4-11.3); NEUTROPHILS # (AUTO) 4.9 (2.1-6.9); NEUTROPHILS % 76.1 % (38.7-80.0); PLATELET COUNT 156 x10e3/uL (140-360); RED BLOOD COUNT 4.18 x10e6/uL (4.3-5.7); RED CELL DISTRIBUTION WIDTH 12.7 % (11.7-14.4)
[2020-12-23 05:00] LABS: ANION GAP 13.5 mmol/L (8-16); BLOOD UREA NITROGEN 12 mg/dL (7-26); BUN/CREATININE RATIO 13 (6-25); CALCIUM 8.1 mg/dL (8.4-10.2); CARBON DIOXIDE 20 mmol/L (22-29); CHLORIDE 113 mmol/L (98-107); CREATININE, SERUM 0.96 mg/dL (0.72-1.25); EST GLOMERULAR FILTRATION RATE > 60 ML/MIN (60-); GLUCOSE 123 mg/dL (74-118); POTASSIUM 3.5 mmol/L (3.5-5.1); SODIUM 143 mmol/L (136-145)
[2020-12-23] MEDS: INSULIN LISPRO 100 UNIT/1 ML 3ML VIAL SQ SCH ×4 (08:41→21:00)
[2020-12-23] MEDS: SITAGLIPTIN 100 MG TAB PO SCH (08:41)
[2020-12-23] MEDS: FERROUS SULFATE 325 MG TAB PO SCH (08:41)
[2020-12-23] MEDS: LOSARTAN POTASSIUM 100 MG TAB PO SCH (08:41)
[2020-12-23] MEDS: AMLODIPINE BESYLATE 5 MG TAB PO SCH (08:41)
[2020-12-23] MEDS: FENOFIBRATE 48 MG TAB PO SCH (08:41)
[2020-12-23] MEDS: OYST-CAL-D 500MG TABLET PO SCH (08:41)
[2020-12-23] MEDS: BRIMONIDINE/TIMOLOL (OPTH SOLN 5 ML DRPETTE OP SCH (10:00)
[2020-12-23] MEDS: CEFTRIAXONE SOD 1 GM in SODIUM CHLORIDE 0.9% 50ML 50 ML IV SCH ×2 (10:17→21:00)
[2020-12-23] MEDS ORDERED: ONDANSETRON HCL 4 MG ORAL DISINTEGRATING TAB PO PRN (12:45)
[2020-12-23] MEDS: ATORVASTATIN 40 MG TAB PO SCH (21:00)
[2020-12-23] MEDS: LATANOPROST(OPTH) 2.5 ML BTL OU SCH (21:00)
[2020-12-23] MEDS: TAMSULOSIN HCL 0.4 MG CAP PO SCH (21:00)
[2020-12-24] VITALS: BP 155/71
[2020-12-24 04:00] VITALS: BP_SYST 142; BP_SYST 152; BP_DIAS 75; BP_DIAS 84
[2020-12-24 04:45] LABS: BASOPHILS # (AUTO) 0.1 (0.0-0.1); BASOPHILS % 0.9 % (0.0-1.0); EOSINOPHILS # (AUTO) 0.3 (0.0-0.4); EOSINOPHILS % 5.1 % (0.0-6.0); HEMATOCRIT 36.3 % (38.2-49.6); HEMOGLOBIN 12.2 g/dL (14.0-18.0); LYMPHOCYTES # (AUTO) 0.8 (1.0-3.2); LYMPHOCYTES % 14.4 % (18.0-39.1); MEAN CORPUSCULAR HEMOGLOBIN 28.4 pg (28-32); MEAN CORPUSCULAR HGB CONC 33.6 g/dL (31-35); MEAN CORPUSCULAR VOLUME 84.6 fL (81-99); MONOCYTES # (AUTO) 0.8 (0.2-0.8); MONOCYTES % 14.2 % (4.4-11.3); NEUTROPHILS # (AUTO) 3.5 (2.1-6.9); PLATELET COUNT 170 x10e3/uL (140-360); RED BLOOD COUNT 4.29 x10e6/uL (4.3-5.7); RED CELL DISTRIBUTION WIDTH 12.7 % (11.7-14.4)
[2020-12-24 05:03] LABS: ANION GAP 14.6 mmol/L (8-16); BLOOD UREA NITROGEN 14 mg/dL (7-26); BUN/CREATININE RATIO 15 (6-25); CALCIUM 8.8 mg/dL (8.4-10.2); CARBON DIOXIDE 22 mmol/L (22-29); CHLORIDE 108 mmol/L (98-107); CREATININE, SERUM 0.91 mg/dL (0.72-1.25); EST GLOMERULAR FILTRATION RATE > 60 ML/MIN (60-); GLUCOSE 114 mg/dL (74-118); POTASSIUM 3.6 mmol/L (3.5-5.1); SODIUM 141 mmol/L (136-145)
[2020-12-24] MEDS: INSULIN LISPRO 100 UNIT/1 ML 3ML VIAL SQ SCH ×4 (07:40→21:00)
[2020-12-24 07:43] VITALS: BP 156/70
[2020-12-24 07:51] VITALS: BP 156/70
[2020-12-24] MEDS: BRIMONIDINE/TIMOLOL (OPTH SOLN 5 ML DRPETTE OP SCH (09:09)
[2020-12-24] MEDS: OYST-CAL-D 500MG TABLET PO SCH (09:10)
[2020-12-24] MEDS: FENOFIBRATE 48 MG TAB PO SCH (09:10)
[2020-12-24] MEDS: LOSARTAN POTASSIUM 100 MG TAB PO SCH (09:10)
[2020-12-24] MEDS: CEFTRIAXONE SOD 1 GM in SODIUM CHLORIDE 0.9% 50ML 50 ML IV SCH ×2 (09:10→21:00)
[2020-12-24] MEDS: FERROUS SULFATE 325 MG TAB PO SCH (09:10)
[2020-12-24] MEDS: SITAGLIPTIN 100 MG TAB PO SCH (09:10)
[2020-12-24] MEDS: AMLODIPINE BESYLATE 5 MG TAB PO SCH (09:10)
[2020-12-24 11:54] VITALS: BP 135/73
[2020-12-24] MEDS ORDERED: FENTANYL CITRATE/PF 100MCG/2 ML INJ ONE (12:08)
[2020-12-24] MEDS ORDERED: LIDOCAINE HCL 2% LOCAL INJ 5 ML SDV VIAL INJ ONE (12:15)
[2020-12-24] MEDS ORDERED: GENTAMICIN SULFATE 40 MG/ML 2 ML VIAL ONE (12:15)
[2020-12-24] MEDS ORDERED: PROPOFOL IV EMULSION 10 MG/ML 20 ML VIAL ONE (12:15)
[2020-12-24] MEDS ORDERED: DEXAMETHASONE SOD PHOS INJ 4 MG/ML VIAL ONE (12:15)
[2020-12-24] MEDS ORDERED: EPHEDRINE SULFATE INJ 50 MG/ML VIAL ONE (12:15)
[2020-12-24] MEDS ORDERED: SEVOFLURANE INHAL SOLN 250 ML PEN BTL ONE (12:15)
[2020-12-24] MEDS ORDERED: IOPAMIDOL 300MG/ML 50ML INFUS..BTL IV ONE (15:50)
[2020-12-24] MEDS ORDERED: B&O 60MG R/S 60 MG SUPP PR ONE (15:50)
[2020-12-24] MEDS ORDERED: B&O 60MG R/S 60 MG SUPP PR PRN (17:15)
[2020-12-24] MEDS ORDERED: SODIUM CHLORIDE 0.9% 50ML 50 ML ONE (17:32)
[2020-12-24] MEDS ORDERED: DEXMEDETOMIDINE HCL 2 ML ONE (17:32)
[2020-12-24] MEDS ORDERED: HYDROMORPHONE 1MG/1ML INJ ONE ×2 (17:53→19:07)
[2020-12-24] MEDS ORDERED: SODIUM CHLORIDE 0.9% 1000ML 1,000 ML ONE (18:02)
[2020-12-24] MEDS ORDERED: LORAZEPAM INJ 2 MG/ML VIAL ONE (19:25)
[2020-12-24 20:00] VITALS: BP_SYST 130; BP_SYST 131; BP_DIAS 69; BP_DIAS 71
[2020-12-24] MEDS: ATORVASTATIN 40 MG TAB PO SCH (21:00)
[2020-12-24] MEDS: LATANOPROST(OPTH) 2.5 ML BTL OU SCH (21:00)
[2020-12-24] MEDS: TAMSULOSIN HCL 0.4 MG CAP PO SCH (21:00)
[2020-12-25] VITALS (7 sets, daily range): BP systolic 132–158; BP diastolic 65–79
[2020-12-25] MEDS: ACETAMINOPHEN/CODEINE 300MG - 30MG TAB PO PRN ×3 (00:53→12:01)
[2020-12-25] MEDS: PHENAZOPYRIDINE HCL 100 MG TAB PO PRN ×2 (04:45→18:10)
[2020-12-25] MEDS: INSULIN LISPRO 100 UNIT/1 ML 3ML VIAL SQ SCH ×4 (07:30→20:51)
[2020-12-25] MEDS: AMLODIPINE BESYLATE 5 MG TAB PO SCH (09:03)
[2020-12-25] MEDS: CEFTRIAXONE SOD 1 GM in SODIUM CHLORIDE 0.9% 50ML 50 ML IV SCH ×2 (09:03→20:49)
[2020-12-25] MEDS: LOSARTAN POTASSIUM 100 MG TAB PO SCH (09:03)
[2020-12-25] MEDS: FERROUS SULFATE 325 MG TAB PO SCH (09:03)
[2020-12-25] MEDS: SITAGLIPTIN 100 MG TAB PO SCH (09:03)
[2020-12-25] MEDS: OYST-CAL-D 500MG TABLET PO SCH (09:03)
[2020-12-25] MEDS: FENOFIBRATE 48 MG TAB PO SCH (09:03)
[2020-12-25] MEDS: BRIMONIDINE/TIMOLOL (OPTH SOLN 5 ML DRPETTE OP SCH (09:05)
[2020-12-25] MEDS ORDERED: SODIUM CHLORIDE 0.9% 250ML 250 ML ONE (20:42)
[2020-12-25] MEDS: TAMSULOSIN HCL 0.4 MG CAP PO SCH (20:50)
[2020-12-25] MEDS: LATANOPROST(OPTH) 2.5 ML BTL OU SCH (20:50)
[2020-12-25] MEDS: ATORVASTATIN 40 MG TAB PO SCH (20:50)
[2020-12-25] MEDS: TRAMADOL HCL 50 MG TAB PO PRN (20:50)
[2020-12-26] VITALS (9 sets, daily range): BP systolic 116–157; BP diastolic 59–74
[2020-12-26 06:44] LABS: BASOPHILS % 0.6 % (0.0-1.0); EOSINOPHILS # (AUTO) 0.2 (0.0-0.4); EOSINOPHILS % 2.8 % (0.0-6.0); HEMATOCRIT 35.8 % (38.2-49.6); HEMOGLOBIN 11.8 g/dL (14.0-18.0); LYMPHOCYTES # (AUTO) 1.1 (1.0-3.2); LYMPHOCYTES % 14.7 % (18.0-39.1); MEAN CORPUSCULAR HEMOGLOBIN 28.3 pg (28-32); MEAN CORPUSCULAR VOLUME 85.9 fL (81-99); MONOCYTES % 13.2 % (4.4-11.3); NEUTROPHILS % 68.1 % (38.7-80.0); PLATELET COUNT 197 x10e3/uL (140-360); RED BLOOD COUNT 4.17 x10e6/uL (4.3-5.7)
[2020-12-26 07:12] LABS: ANION GAP 10.6 mmol/L (8-16); CALCIUM 8.5 mg/dL (8.4-10.2); CREATININE, SERUM 1.18 mg/dL (0.72-1.25); POTASSIUM 3.6 mmol/L (3.5-5.1)
[2020-12-26] MEDS: INSULIN LISPRO 100 UNIT/1 ML 3ML VIAL SQ SCH ×4 (07:30→20:16)
[2020-12-26] MEDS: LOSARTAN POTASSIUM 100 MG TAB PO SCH (09:40)
[2020-12-26] MEDS: FERROUS SULFATE 325 MG TAB PO SCH (09:40)
[2020-12-26] MEDS: OYST-CAL-D 500MG TABLET PO SCH (09:41)
[2020-12-26] MEDS: SITAGLIPTIN 100 MG TAB PO SCH (09:42)
[2020-12-26] MEDS: AMLODIPINE BESYLATE 5 MG TAB PO SCH (09:42)
[2020-12-26] MEDS: BRIMONIDINE/TIMOLOL (OPTH SOLN 5 ML DRPETTE OP SCH (09:47)
[2020-12-26] MEDS: CEFTRIAXONE SOD 1 GM in SODIUM CHLORIDE 0.9% 50ML 50 ML IV SCH ×2 (10:44→20:32)
[2020-12-26] MEDS: FENOFIBRATE 48 MG TAB PO SCH (12:05)
[2020-12-26] MEDS: ACETAMINOPHEN/CODEINE 300MG - 30MG TAB PO PRN (14:55)
[2020-12-26] MEDS: TRAMADOL HCL 50 MG TAB PO PRN (20:13)
[2020-12-26] MEDS: ATORVASTATIN 40 MG TAB PO SCH (20:32)
[2020-12-26] MEDS: LATANOPROST(OPTH) 2.5 ML BTL OU SCH (20:32)
[2020-12-26] MEDS: TAMSULOSIN HCL 0.4 MG CAP PO SCH (20:32)
[2020-12-27] VITALS (8 sets, daily range): BP systolic 116–167; BP diastolic 60–88
[2020-12-27] MEDS: LOSARTAN POTASSIUM 100 MG TAB PO SCH (08:22)
[2020-12-27] MEDS: OYST-CAL-D 500MG TABLET PO SCH (08:22)
[2020-12-27] MEDS: FERROUS SULFATE 325 MG TAB PO SCH (08:22)
[2020-12-27] MEDS: AMLODIPINE BESYLATE 5 MG TAB PO SCH (08:23)
[2020-12-27] MEDS: SITAGLIPTIN 100 MG TAB PO SCH (08:24)
[2020-12-27] MEDS: FENOFIBRATE 48 MG TAB PO SCH (08:27)
[2020-12-27] MEDS: BRIMONIDINE/TIMOLOL (OPTH SOLN 5 ML DRPETTE OP SCH (08:33)
[2020-12-27] MEDS: CEFTRIAXONE SOD 1 GM in SODIUM CHLORIDE 0.9% 50ML 50 ML IV SCH (08:33)
[2020-12-27] MEDS: INSULIN LISPRO 100 UNIT/1 ML 3ML VIAL SQ SCH ×3 (08:34→16:50)
[2020-12-27] MEDS: ACETAMINOPHEN/CODEINE 300MG - 30MG TAB PO PRN (14:21)
[2020-12-27] MEDS: PHENAZOPYRIDINE HCL 100 MG TAB PO PRN (14:21)
[2020-12-27] MEDS ORDERED: ceftin PO (19:03)
== END 2020-12-27 21:58 | disposition home or self-care (01) | DRG 854 ==
LOC: ER 08:48 → ERHOLD 15:10 → MED/SURG2 16:33 → UNDODISIN 12-24 11:23 → MED/SURG 12-24 18:36
PROVIDERS: ADMIT Internal Medicine; ATTEND Internal Medicine
PROC: 0V508ZZ Destruction of Prostate, Via Natural or Artificial Opening Endoscopic (ICD-10-PCS; principal; 2020-12-24 16:30)
DX: A41.51 Sepsis due to Escherichia coli [E. coli] (principal); N17.9 Acute kidney failure, unspecified; N39.0 Urinary tract infection, site not specified; N13.8 Other obstructive and reflux uropathy; R65.20 Severe sepsis without septic shock; I10 Essential (primary) hypertension; E11.9 Type 2 diabetes mellitus without complications; K21.9 Gastro-esophageal reflux disease without esophagitis; E78.00 Pure hypercholesterolemia, unspecified; E66.9 Obesity, unspecified; N40.1 Benign prostatic hyperplasia with lower urinary tract symptoms; N39.498 Other specified urinary incontinence; R39.14 Feeling of incomplete bladder emptying; R39.12 Poor urinary stream; I25.10 Atherosclerotic heart disease of native coronary artery without angina pectoris; Z20.822 Contact with and (suspected) exposure to COVID-19; N47.1 Phimosis; D64.9 Anemia, unspecified; K80.20 Calculus of gallbladder without cholecystitis without obstruction; D50.9 Iron deficiency anemia, unspecified; Z95.1 Presence of aortocoronary bypass graft; Z68.30 Body mass index [BMI] 30.0-30.9, adult
CPT/HCPCS: 36415; 51700; 71045; 74176; 74420; 80048; 80053; 81001; 82550; 82553; 82948; 83605; 83735; 84484; 85025; 85610; 85730; 87040; 87086; 87186; 88305; 93005; 96360; 96361; 99251; 99284; C1758; J0696; J1170; J2060; J3010; J3370; J7030; J7050; U0002

== ENCOUNTER 2021-07-25 20:23 | Emergency (ER) | payer MEDICARE ==
[~2021-07-25] VITALS: Ht 167.6 cm; Wt 84.4 kg
[~2021-07-25 20:23] MED LIST changes: +AMLODIPINE BESYL5 MG PO; +CALCIUM CARBON500 MG PO; +FEROSUL325 MG PO; +LISINOPRIL10 MG PO; +ceftin PO
[2021-07-25 21:25] LABS: BASOPHILS % 0.3 % (0.0-1.0); HEMATOCRIT 42.4 % (38.2-49.6); LYMPHOCYTES # (AUTO) 0.4 (1.0-3.2); LYMPHOCYTES % 3.4 % (18.0-39.1); MEAN CORPUSCULAR HEMOGLOBIN 29.1 pg (28-32); MEAN CORPUSCULAR VOLUME 88.1 fL (81-99); MONOCYTES # (AUTO) 0.2 (0.2-0.8); MONOCYTES % 1.5 % (4.4-11.3); NEUTROPHILS % 94.1 % (38.7-80.0); PLATELET COUNT 173 x10e3/uL (140-360); RED BLOOD COUNT 4.81 x10e6/uL (4.3-5.7); RED CELL DISTRIBUTION WIDTH 13.2 % (11.7-14.4)
[2021-07-25 21:44] LABS: ALBUMIN 3.3 g/dL (3.5-5.0); ANION GAP 15.8 mmol/L (8-16); CALCIUM 9.1 mg/dL (8.4-10.2); CREATININE, SERUM 1.4 mg/dL (0.72-1.25); POTASSIUM 3.8 mmol/L (3.5-5.1)
[2021-07-25] MEDS ORDERED: ACETAMINOPHEN 325 MG TAB PO ONE (22:00)
[2021-07-25 22:03] LABS: CREATINE KINASE MB 0.4 ng/mL (0-5.0)
[2021-07-25] MEDS ORDERED: CEFTRIAXONE 1 GM in SODIUM CHLORIDE 0.9% 50ML 50 ML IV ONE (23:30)
[2021-07-26 00:44] VITALS: BP 131/85
== END 2021-07-26 00:30 | disposition home or self-care (01) ==
LOC: ER 20:53
DX: R50.9 Fever, unspecified (principal); J18.9 Pneumonia, unspecified organism; R91.8 Other nonspecific abnormal finding of lung field; R94.31 Abnormal electrocardiogram [ECG] [EKG]
CPT/HCPCS: 36415; 71045; 80053; 82550; 82553; 83605; 84484; 85025; 87040; 87071; 87186; 87205; 93005; 99284; U0002

== ENCOUNTER 2025-04-22 13:43 | Emergency (ER) | payer MEDICARE ==
[~2025-04-22] VITALS: Ht 167.6 cm; Wt 84.4 kg
[2025-04-22 14:00] VITALS: TEMP 98
[2025-04-22 14:40] LABS: BASOPHILS % 0.5 % (0.0-1.0); EOSINOPHILS % 2.5 % (0.0-6.0); LYMPHOCYTES % 14.6 % (18.0-39.1); MONOCYTES % 8.5 % (4.4-11.3); NEUTROPHILS % 73.4 % (38.7-80.0); RED CELL DISTRIBUTION WIDTH 12.8 % (11.7-14.4)
[2025-04-22 14:53] LABS: EST GLOMERULAR FILTRATION RATE 49.0 ML/MIN (>=60)
[2025-04-22 16:21] LABS: LEUKOCYTE ESTERASE ,URINE NEGATIVE (NEGATIVE); PROTEIN,URINE DIPSTICK >=300 (NEGATIVE); URINE UROBILINOGEN 0.2 mg/dL (0.2 - 1)
[2025-04-22 16:38] LABS: WBC,URINE (MAN) 0-5 /HPF (0-5)
[2025-04-22 16:59] VITALS: PULSE 58; RESP 16
[2025-04-22 17:57] VITALS: BP 132/98; PULSE 63; RESP 15; TEMP 97.6; O2SAT 99
== END 2025-04-22 17:41 | disposition home or self-care (01) ==
LOC: ER 14:00
DX: R41.0 Disorientation, unspecified (principal); R51.9 Headache, unspecified; I10 Essential (primary) hypertension; E11.65 Type 2 diabetes mellitus with hyperglycemia; K21.9 Gastro-esophageal reflux disease without esophagitis; E78.00 Pure hypercholesterolemia, unspecified; Z95.1 Presence of aortocoronary bypass graft
CPT/HCPCS: 36415; 70450; 71045; 80053; 81001; 84484; 85025; 85379; 93005; 99283

== ENCOUNTER 2025-05-20 20:27 | Inpatient (IN) | payer MEDICARE ==
[~2025-05-20] VITALS: Ht 167.6 cm; Wt 84.4 kg
[2025-05-20 21:46] LABS: BASOPHILS % 0.7 % (0.0-1.0); EOSINOPHILS % 3.7 % (0.0-6.0); LYMPHOCYTES % 18.7 % (18.0-39.1); MONOCYTES % 11.1 % (4.4-11.3); NEUTROPHILS % 65.7 % (38.7-80.0); RED CELL DISTRIBUTION WIDTH 13.0 % (11.7-14.4)
[2025-05-20 21:57] LABS: EST GLOMERULAR FILTRATION RATE 52.0 ML/MIN (>=60)
[2025-05-20 22:05] LABS: CORONAVIRUS COVID-19 AG NEGATIVE (NEGATIVE)
[2025-05-20 22:33] LABS: LEUKOCYTE ESTERASE ,URINE NEGATIVE (NEGATIVE); PROTEIN,URINE DIPSTICK >=300 (NEGATIVE); URINE UROBILINOGEN 1 mg/dL (0.2 - 1)
[2025-05-20 22:37] LABS: EPITHELIAL CELLS,URINE MANY /LPF
[2025-05-20] MEDS: SODIUM CHLORIDE 0.9% 1000ML 1,000 ML IV STA (22:51)
[2025-05-20 23:44] VITALS: PULSE 68; RESP 18; TEMP 98
[2025-05-21] VITALS (7 sets, daily range): BP systolic 143–191; BP diastolic 71–80; PULSE 58–65; RESP 17–19; TEMP 97.4–98.6; O2SAT 97–99
[2025-05-21] MEDS: SODIUM CHLORIDE 0.9% 1000ML 1,000 ML IV SCH (00:48)
[2025-05-21] MEDS ORDERED: BENICAR20 MG PO (01:00)
[2025-05-21] MEDS ORDERED: DONEPEZIL HCL5 MG PO (01:15)
[2025-05-21] MEDS ORDERED: [UNRECOGNIZED DRUG - OTHER] PO (01:15)
[2025-05-21] MEDS ORDERED: CRESTOR40 MG PO (01:15)
[2025-05-21] MEDS ORDERED: TRADJENTA5 MG PO (01:15)
[2025-05-21] MEDS ORDERED: CLOPIDOGREL75 MG PO (01:15)
[2025-05-21 06:28] LABS: BASOPHILS % 1.7 % (0.0-1.0); EOSINOPHILS % 7.1 % (0.0-6.0); LYMPHOCYTES % 27.4 % (18.0-39.1); MONOCYTES % 12.5 % (4.4-11.3); NEUTROPHILS % 51.1 % (38.7-80.0); RED CELL DISTRIBUTION WIDTH 13.2 % (11.7-14.4)
[2025-05-21 07:10] LABS: EST GLOMERULAR FILTRATION RATE 61.0 ML/MIN (>=60)
[2025-05-21] MEDS ORDERED: POLYETHYLENE GLYCOL 3350 17 GM PACK PO PRN (11:45)
[2025-05-21] MEDS ORDERED: ONDANSETRON HCL INJ 2MG/ML 2ML 2 MG/ML VIAL IV PRN (11:45)
[2025-05-21] MEDS ORDERED: MAGNESIUM/ALUMINUM/SIMETHICONE 30 ML UDC PO PRN (11:45)
[2025-05-21] MEDS ORDERED: HYDRALAZINE HCL 20 MG/ML VIAL IV PRN (11:45)
[2025-05-21] MEDS ORDERED: GUAIFENESIN/DEXTROMETHORPHAN LIQD 5 ML UDC PO PRN (11:45)
[2025-05-21] MEDS ORDERED: ACETAMINOPHEN 325 MG TAB PO PRN (11:45)
[2025-05-21] MEDS ORDERED: MELATONIN 3 MG TAB PO PRN (11:45)
[2025-05-21] MEDS ORDERED: DEXTROSE 50% SYRINGE 50 ML IV PRN (12:00)
[2025-05-21] MEDS ORDERED: INSULIN REGULAR, HUMAN 100 UNIT/1 ML SQ SCH (16:30)
[2025-05-21] MEDS ORDERED: DOCUSATE SODIUM 100 MG CAP PO SCH (17:00)
[2025-05-21] MEDS ORDERED: LATANOPROST(OPTH) 2.5 ML BTL OU SCH (21:00)
[2025-05-21] MEDS ORDERED: TAMSULOSIN HCL 0.4 MG CAP PO SCH (21:00)
[2025-05-21] MEDS ORDERED: ATORVASTATIN 40 MG TAB PO SCH (21:00)
[2025-05-21] MEDS ORDERED: DONEPEZIL HCL 5 MG TAB PO SCH (21:00)
[2025-05-22] MEDS ORDERED: CLOPIDOGREL BISULFATE 75 MG TAB PO SCH (09:00)
[2025-05-22] MEDS ORDERED: THIAMINE HCL 100 MG TAB PO SCH (09:00)
[2025-05-22] MEDS ORDERED: FOLIC ACID 1 MG TAB PO SCH (09:00)
[2025-05-22] MEDS ORDERED: OLMESARTAN 20 MG TAB PO SCH (09:00)
[2025-05-22] MEDS ORDERED: MULTIVITAMINS/MINERALS TAB PO SCH (09:00)
[2025-05-22] MEDS ORDERED: BRIMONIDINE/TIMOLOL (OPTH SOLN 5 ML DRPETTE OP SCH (09:00)
== END 2025-05-21 16:35 | disposition left against medical advice (07) | DRG 193 ==
LOC: ER 20:30 → ERHOLD 23:10 → MED/SURG3 23:50
PROVIDERS: ADMIT Internal Medicine; ATTEND Internal Medicine
DX: J18.9 Pneumonia, unspecified organism (principal); G92.8 Other toxic encephalopathy; N39.0 Urinary tract infection, site not specified; N17.9 Acute kidney failure, unspecified; R53.1 Weakness; E11.9 Type 2 diabetes mellitus without complications; K21.9 Gastro-esophageal reflux disease without esophagitis; E78.00 Pure hypercholesterolemia, unspecified; H91.90 Unspecified hearing loss, unspecified ear; E86.0 Dehydration; R62.7 Adult failure to thrive; I25.10 Atherosclerotic heart disease of native coronary artery without angina pectoris; H54.8 Legal blindness, as defined in USA; I11.9 Hypertensive heart disease without heart failure; R26.89 Other abnormalities of gait and mobility; E66.9 Obesity, unspecified; Z79.02 Long term (current) use of antithrombotics/antiplatelets; Z11.52 Encounter for screening for COVID-19; Z87.440 Personal history of urinary (tract) infections; Z95.1 Presence of aortocoronary bypass graft; I69.320 Aphasia following cerebral infarction; I69.398 Other sequelae of cerebral infarction; Z68.30 Body mass index [BMI] 30.0-30.9, adult
CPT/HCPCS: 36415; 70450; 71045; 80053; 81001; 82550; 82948; 83880; 84484; 85025; 93005; 93306; 99285; J0696; J7030; J7050